=== PATIENT | female | born 1955 | race Caucasian/White ===

== ENCOUNTER 2020-01-05 01:42 | Outpatient (CLI) | payer MEDICARE, SELFPAY ==
[2020-01-05 18:23] LABS: SARS-CoV-2 RNA PCR Negative
== END 2020-01-05 01:43 | disposition home or self-care (01) ==
LOC: ANHCOVIDDT 01:44
PROVIDERS: PCP Internal Medicine; Visit Provider Internal Medicine Gastroenterology
DX: Z01.812 Encounter for preprocedural laboratory examination (principal); Z20.828 Contact with and (suspected) exposure to other viral communicable diseases
CPT/HCPCS: 87635; C9803; U0003

== ENCOUNTER 2020-01-07 00:44 | Day surgery (SDC) | payer MEDICARE, SELFPAY ==
[2019-12-24 14:51] VITALS: BMI 29.8
[2020-01-07 06:22] VITALS: BP 123/75; PULSE 64; RESP 20; TEMP 36.2; O2SAT 98; BMI 29.4
[2020-01-07] MEDS: LACTATED RINGERS 1,000 ML 150 ML IV CONT (06:36)
--- NOTE | 2020-01-07 07:12 | WPDANESEPPF ---
Anes - Initial Pre Proc Eval Procedure: Operation Date: 01/07/20 07:30 Proposed Procedures p Screening Colonoscopy - Raudel Crooks DO Date/Time: 01/07/20 07:12 Surgeon: Raudel Crooks DO Pre Op Diagnosis: neoplasm screening, hx colon polyps Patient Data Age: 64 Gender: F Height: 5 ft 2 in Weight: 72.9 kg Last Vital Signs Temp 97.1 F L 01/07/20 06:22 Pulse 64 01/07/20 06:22 Resp 20 01/07/20 06:22 BP 123/75 01/07/20 06:22 Pulse Ox 98 01/07/20 06:22 Allergies Allergy/AdvReac Type Severity Reaction Status Date / Time diclofenac Allergy Intermediate did not Verified 01/07/20 06:20 like how it made her feel latex Allergy Mild Rash Verified 01/07/20 06:20 Home Medications Medication Instructions Recorded Confirmed Type loratadine 10 mg tablet 10 mg PO DAILY 09/04/19 12/24/19 History lansoprazole 30 mg capsule,delayed 30 mg PO DAILY #90 cap 12/16/19 12/24/19 Rx release meloxicam 15 mg tablet 15 mg PO DAILY #90 tablet 12/16/19 12/24/19 Rx lisinopril 2.5 mg tablet 2.5 mg PO DAILY #90 tablet 12/21/19 12/24/19 Rx so-pda-gamfi-vit [id number] 1 tablet PO DAILY 12/24/19 12/24/19 History [Alive Women's 50 Plus (blend)] Patient hx anesthesia problems: none Family hx anesthesia problems: none PMFSH Past Medical History Medical History (Updated 01/07/20 @ 07:12 by Sanket Kerns MD) Essential (primary) hypertension Pure hypercholesterolemia Social History Social History Smoking status: Never smoker Second hand tobacco smoke exposure: No Alcohol intake: never Substance use: never Anes - Eval Final PreProcedure Day of Procedure 01/07/20 07:12 Patient weight: normal Heart: regular rate and rhythm Lungs: clear to auscultation Airway: Mallampati scale class II Neurological: alert and oriented Last oral intake: >/= 8 hours ASA classification: II Emergent: no Anesthetic plan: proceed Anesthesia type and monitoring: general GIVS and standard monitoring Informed Consent: The patient's anesthetic plan and its attendant risks and benefits were discussed with the patient/family/POA. Questions were solicited and answers provided to the satisfaction of the patient/family/POA.
--- NOTE | 2020-01-07 07:31 | PM.IMHP ---
H&P: HPI History of Present Illness Date/Time: 01/07/20 07:31 Chief complaint: neoplasm screening, hx colon polyps Narrative: Reason for visit is colonoscopy. This very pleasant lady seen in consultation at the request of the primary physician. Impression: Here is a pleasant lady with a history of adenomatous colon polyps. She is here for screening and surveillance colonoscopy. Hypertension. Recommendation: Colonoscopy. History: This very pleasant lady's being evaluated for screening and surveillance colonoscopy. She has history of adenomatous colon polyps. Her GI review systems negative. Physical examination: General: very pleasant patient in no acute distress. HEENT: Head was normocephalic sclerae is clear mouth without masses neck was supple. Heart: Rate rhythm regular without S3 or S4. Lungs: CTA. Abdomen: Soft with no guarding or rigidity. Bowel sounds were active. Neurologic: Cranial nerves 2 through 12 intact. No focal defects. No clonus. Musculoskeletal system: Revealed no joint tenderness or swelling no muscle atrophy. Extremities: Reveal no significant edema. Skin: Warm and dry with normal turgor. Mental status: intact. Patient is alert and oriented. Review of Systems Review of Systems: All systems reviewed & are unremarkable except as noted in HPI and below PMFSH Past Medical History Medical History (Updated 01/07/20 @ 07:29 by Raudel Crooks DO) Adenomatous colon polyp Essential (primary) hypertension HLD (hyperlipidemia) Surgical History Surgical History (Updated 01/07/20 @ 07:30 by Raudel Crooks DO) H/O colonoscopy Social History Social History Smoking status: Never smoker Second hand tobacco smoke exposure: No Alcohol intake: never Substance use: never Meds Home Medications and Allergies Home Medications Medication Instructions Recorded Confirmed Type loratadine 10 mg tablet 10 mg PO DAILY 09/04/19 12/24/19 History lansoprazole 30 mg capsule,delayed 30 mg PO DAILY #90 cap 12/16/19 12/24/19 Rx release meloxicam 15 mg tablet 15 mg PO DAILY #90 tablet 12/16/19 12/24/19 Rx lisinopril 2.5 mg tablet 2.5 mg PO DAILY #90 tablet 12/21/19 12/24/19 Rx rk-lgl-aunjz-vit [id number] 1 tablet PO DAILY 12/24/19 12/24/19 History [Alive Women's 50 Plus (blend)] Allergies Allergy/AdvReac Type Severity Reaction Status Date / Time diclofenac Allergy Intermediate did not Verified 01/07/20 06:20 like how it made her feel latex Allergy Mild Rash Verified 01/07/20 06:20 Vital Signs Vital Signs - 24 hr 01/07/20 06:22 Temperature 36.2 C L Pulse Rate 64 Respiratory Rate 20 Blood Pressure 123/75 Pulse Oximetry 98
[2020-01-07] MEDS: SIMETHICONE ORAL SUSPENSION 20 MG/0.3 ML 30 ML BOTTLE 0.6 ML IRRIGATION (07:44)
[2020-01-07 07:54] VITALS: BP 106/66; PULSE 65; RESP 22; O2SAT 98
[2020-01-07 08:04] VITALS: BP 98/54; PULSE 59; RESP 23; O2SAT 98
[2020-01-07 08:14] VITALS: BP 114/74; PULSE 57; RESP 22; O2SAT 97
== END 2020-01-07 08:25 | disposition home or self-care (01) ==
PROVIDERS: PCP Internal Medicine; Visit Provider Internal Medicine Gastroenterology
PROC: 0DJD8ZZ Inspection of Lower Intestinal Tract, Via Natural or Artificial Opening Endoscopic (ICD-10-PCS; CPT 45378; principal; 2020-01-07 07:30)
DX: Z12.11 Encounter for screening for malignant neoplasm of colon (principal); K64.8 Other hemorrhoids; Z86.010 Personal history of colon polyps; I10 Essential (primary) hypertension; E78.5 Hyperlipidemia, unspecified
CPT/HCPCS: G0105; J2704; J7120

== ENCOUNTER 2020-05-13 10:42 | Emergency (ER) | payer MEDICARE, SELFPAY ==
--- NOTE | ~2020-05-13 | CT_ITS ---
EXAMINATION: CT abdomen pelvis w con DATE: 05/13/2020 12:17 INDICATION: COVID positive. Left flank pain. TECHNIQUE: Computed tomography (CT) of the abdomen and pelvis was performed with 100 mL Omnipaque-350 intravenous contrast. Automated exposure control and iterative reconstruction technique were employe d. The dose-length product was 435.41 mGy-cm. COMPARISON: None FINDINGS: Multiple scattered small groundglass opacities throughout the bilateral lower and right middle lobes. Slightly denser small region of consolidation in the right lower lobe. Appearance would be consisten t with mild or early COVID pneumonia. Heart size is normal. No pericardial or pleural effusion. Small sliding-type hiatal hernia. There are couple hepatic cysts the larger measuring 2.8 cm. Gallbladder, spleen, pancreas and bilateral adrenal glands are normal. 5 x 2 mm stone or change of tiny stones in the distalmost left ureter with mild left hydroureteroneph rosis. There is an additional 3 mm stone at the infundibulum in the upper pole of the left kidney. Th ere is very subtle delay in left renal parenchymal enhancement relative to the right kidney. There ar e few small regions of cortical scarring at the right kidney likely sequela of prior infection or inf arction. Bowels including the appendix are normal. Bladder, uterus and bilateral adnexa are unremarkable. No f ree intraperitoneal gas or fluid. No pathologically enlarged abdominal or pelvic lymphadenopathy. Cys tic changes at the anterosuperior femoral head neck junctions on both the left and right which could be seen in the setting of impingement. Bones are otherwise unremarkable. IMPRESSION: 1. Nephrolithiasis with 5 x 2 mm stone versus chain of tiny stones at the distalmost left ureter with mild left hydroureteronephrosis. 2. Mild patchy opacities in the bilateral lower lungs consistent with mild or early COVID pneumonia. 3. Small sliding-type hiatal hernia. Reviewed, dictated and finalized at location A. 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 Nephrolithiasis with 5 x 2 mm stone versus chain of tiny stones at the dista lmost left ureter with mild left hydroureteronephrosis. 2. Mild patchy opacities in the bilateral lower lungs consistent with mild or e saul COVID pneumonia. 3. Small sliding-type hiatal hernia.
[2020-05-13 10:58] VITALS: BP 106/90; PULSE 72; RESP 16; TEMP 36.4; O2SAT 98
[2020-05-13 11:22] LABS: Basophils Percent Auto 0.2 % (0.2-1.2); Eosinophils Absolute Auto 0.1 K/mm3 (0-0.3); Eosinophils Percent Auto 0.8 % (0-4.4); Hematocrit 41.7 % (37.0-47.0); Hemoglobin 14.1 g/dL (12.0-15.0); Immature Granulocyte Absolute 0.23 K/mm3 (0.00-0.031); Immature Granulocyte Percent A 2.7 % (0-0.5); Lymphocytes Absolute Auto 1.01 K/mm3 (0.9-3.2); Mean Corpuscular HGB Conc 33.8 g/dl (32-36); Mean Corpuscular Hemoglobin 31.7 pg (26-34); Mean Corpuscular Volume 93.7 fl (80-100); Mean Platelet Volume 10.6 fl (7.4-10.4); Monocytes Absolute Auto 0.6 K/mm3 (0.1-0.6); Monocytes Percent Auto 6.5 % (2.6-8.5); Neutrophils Absolute Auto 6.5 K/mm3 (1.3-6.7); Neutrophils Percent Auto 77.8 % (45.5-73.1); Platelet Count Result 208 k/mm3 (150-375); Red Blood Count 4.45 M/mm3 (4.2-5.4); Red Cell Distribution Width 11.9 % (11.5-14.5); White Blood Count 8.4 K/mm3 (4.5-10.0)
--- NOTE | 2020-05-13 11:34 | ED.ABDPAIN ---
HPI - Abdominal Pain General Chief Complaint: Abdominal Pain Stated Complaint: left flank pain Time Seen by Provider: 05/13/20 11:34 Source: patient Mode of arrival: ambulatory Limitations: no limitations History of Present Illness HPI narrative: Patient is a 64-year-old female, recently diagnosed with Covid on May 03, who presents for evaluation of left flank pain. Patient states she had been feeling well despite the Covid diagnosis and then began to have subjective fever, chills, nausea and left flank pain beginning yesterday. Pain is at times sharp in nature with radiation to the left lower abdomen. She has had associated nausea without vomiting. She reports some suprapubic pressure and slight dysuria and frequency. No noticeable hematuria. No known history of kidney stones. Patient denies cough or shortness of breath. Related Data Home Medications Medication Instructions Recorded Confirmed loratadine 10 mg tablet 10 mg PO DAILY 09/04/19 03/15/20 gc-lmg-hbgma-vit [id number] 1 tablet PO DAILY 12/24/19 03/15/20 [Alive Women's 50 Plus (blend)] mecobalamin (vitamin B12) 5,000 mcg PO 03/15/20 03/15/20 mcg disintegrating tablet omega-3 fatty acids 1,000 mg 1,000 mg PO DAILY 03/15/20 03/15/20 capsule Allergies Allergy/AdvReac Type Severity Reaction Status Date / Time diclofenac Allergy Intermediate did not Verified 03/15/20 10:38 like how it made her feel latex Allergy Mild Rash Verified 03/15/20 10:38 Review of Systems Review of Systems: Narrative: CONSTITUTIONAL: Reports subjective fever and chills EYES: Denies visual changes, redness, or discharge. ENT: Denies rhinorrhea, congestion, sore throat, or otalgia. CARDIOVASCULAR: Denies chest pain, palpitations, or edema. RESPIRATORY: Denies cough or dyspnea. GASTROINTESTINAL: Reports left-sided abdominal pain, nausea and vomiting GENITOURINARY: Reports dysuria, denies hematuria SKIN: Denies rash or itching. MUSCULOSKELETAL: Denies back pain, joint pain, or myalgia. NEUROLOGIC: Denies headache, numbness, or weakness. [facility] Past Medical History Medical History Adenomatous colon polyp Essential (primary) hypertension HLD (hyperlipidemia) Surgical History Surgical History H/O colonoscopy Family History Family History Mother Patient's mother is in good health Father Patient's father is Acute myocardial infarction Social History Social History Smoking status: Never smoker Second hand tobacco smoke exposure: No Alcohol intake: never Substance use: never Gender identity (if verbalized by the patient): Female Exam Narrative: Exam Narrative: GENERAL: Awake, alert, conversant HEAD: Normocephalic, atraumatic. EYES: PERRLA and EOMI. ENT: Nares clear, no rhinorrhea or epistaxis. Mucous membranes moist. NECK: Supple. CHEST: No respiratory distress, breathing even and non labored HEART: Regular rate, sinus rhythm ABDOMEN:Non distended, non tender, no reproducible flank tenderness, no reproducible left lower quadrant tenderness, mild left suprapubic tenderness EXTREMITIES: Normal range of motion. No edema. SKIN: Warm, dry, no rash. NEURO:No focal deficits. Alert and oriented x3 Course Vital Signs Vital signs: Vital Signs Temperature 36.4 C 05/13/20 10:58 Pulse Rate 72 05/13/20 10:58 Respiratory Rate 16 05/13/20 10:58 Blood Pressure 106/90 05/13/20 10:58 Pulse Oximetry 98 05/13/20 10:58 Temperature 36.4 C 05/13/20 10:58 Pulse Rate 77 05/13/20 13:57 Respiratory Rate 15 05/13/20 13:57 Blood Pressure 131/74 05/13/20 13:57 Pulse Oximetry 95 05/13/20 13:57 MDM - Abdominal Pain MDM Narrative Medical decision making narrative: Patient present
[2020-05-13 11:35] LABS: Alanine Aminotransferase 34 U/L (4-35); Albumin Level 3.9 g/dL (3.5-5.1); Alkaline Phosphatase 33 U/L (38-126); Anion Gap 7 mmol/L (8-16); Aspartate Amino Transferase 34 U/L (14-36); Bilirubin,Total 0.6 mg/dL (0.2-1.3); Blood Urea Nitrogen 30 mg/dL (7-17); Calcium 9.2 mg/dL (8.4-10.2); Carbon Dioxide 25 mmol/L (22-30); Chloride 107 mmol/L (98-107); Estimated CRCL calculation 38 ml/min; Estimated Glomerular Filt Rate 45; Glucose 126 mg/dL (65-105); Lipase 94 U/L (23-300); Potassium 4.1 mmol/L (3.4-5.0); Sodium 139 mmol/L (137-145)
[2020-05-13] MEDS: SODIUM CHLORIDE 0.9% IV 1,000 ML 999 ML IV CONT (11:53)
[2020-05-13] MEDS: MORPHINE SULFATE (*CRX) 4 MG/ML INJ IV PUSH (11:53)
[2020-05-13] MEDS: ONDANSETRON INJ 4 MG/2 ML VIAL IV PUSH (11:53)
[2020-05-13 12:17] LABS: Add Urine Microscopic? YES; Appearance Urine Cloudy (Clear); Bacteria Urine Trace /hpf; Bilirubin Urine Negative (Negative); Blood Urine 3+ (Negative); Color Urine Yellow (Yellow); Glucose Urine UA Negative (Negative); Ketones Urine Negative (Negative); Leukocyte Esterase Ur 1+ LEU/UL (Negative); Mucus Urine Rare /lpf; Nitrate Urine Negative (Negative); Protein Urine Negative (Negative); RBC Urine >75 /hpf (0-2); Specific Grav Ur 1.018 (1.001-1.035); Squamous Epithelial Cell Urine Rare /hpf (Few); Uric Acid Crystals Urine Present /hpf; Urobilinogen Urine Negative mg/dL (<2.0)
[2020-05-13 13:01] VITALS: BP 126/71; PULSE 80; RESP 18; O2SAT 97
[2020-05-13 13:57] VITALS: BP 131/74; PULSE 77; RESP 15; O2SAT 95
[2020-05-13 15:15] VITALS: BP 111/72; PULSE 80; RESP 15; O2SAT 97
== END 2020-05-13 15:16 | disposition home or self-care (01) ==
LOC: ANHED 13:12 → ANHSURGERY 14:04 → ANHED 14:23
PROVIDERS: Emergency Provider Emergency Medicine; PCP Internal Medicine
DX: U07.1 COVID-19 (principal); N13.2 Hydronephrosis with renal and ureteral calculous obstruction; Z86.010 Personal history of colon polyps; E78.5 Hyperlipidemia, unspecified; I10 Essential (primary) hypertension; R91.8 Other nonspecific abnormal finding of lung field
CPT/HCPCS: 36415; 74177; 80053; 81001; 83690; 85025; 96361; 96365; 96375; 99284; J0696; J2270; J2405; J7030; Q9967

== ENCOUNTER 2020-06-14 10:46 | Outpatient (CLI) | payer MEDICARE, SELFPAY ==
--- NOTE | ~2020-06-14 | XR_ITS ---
XR abdomen/kub 1V 06/14/2020 11:18 INDICATION: Follow-up ureteral stone TECHNIQUE: KUB COMPARISON: CT dated 05/13/2020 FINDINGS: Bowel gas pattern is normal. There is no evidence of free air, mass, organomegaly, ascites or obstruction. Moderate colonic fecal loading. No abnormal calculi are seen. The bones appear inta ct. IMPRESSION: 1: No acute abdominal abnormality identified. Reviewed, dictated and finalized at location A. 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
== END 2020-06-14 10:47 | disposition home or self-care (01) ==
LOC: ANHIMG 10:47
PROVIDERS: PCP Internal Medicine; Visit Provider Urology
DX: N20.1 Calculus of ureter (principal)
CPT/HCPCS: 74018

== ENCOUNTER → 2020-08-03 13:23 | Outpatient (CLI) | payer MEDICARE, SELFPAY ==
--- NOTE | ~2020-08-03 | MM_ITS ---
EXAMINATION: MM screening [facility] BI w alexander HISTORY: Screening TECHNIQUE: Craniocaudal and mediolateral oblique 3-D tomosynthesis images were obtained and synthetic 2-D images were generated. CAD analysis was submitted and interpreted. COMPARISON: Comparison to multiple prior studies sequentially, with oldest reviewed study dated 12/03. BREAST PARENCHYMAL COMPOSITION: There are scattered areas of fibroglandular density. FINDINGS: There is no evidence of suspicious mass, calcification, or architectural distortion to sugg est malignancy in either breast. There has been no suspicious interval change. IMPRESSION: 1. No mammographic evidence of malignancy. 2. Recommend routine screening mammography in one year. BI-RADS Category 1: Negative Reviewed, dictated and finalized at location A.
== END ==
PROVIDERS: Visit Provider Student in an Organized Health Care Education/Training Program
DX: Z12.31 Encounter for screening mammogram for malignant neoplasm of breast (principal)
CPT/HCPCS: 77063; 77067

== ENCOUNTER 2021-06-08 10:20 | Outpatient (CLI) | payer MEDICARE, SELFPAY ==
--- NOTE | ~2021-06-08 | XR_ITS ---
XR abdomen/kub 1V 06/08/2021 10:36 INDICATION: Left flank pain TECHNIQUE: KUB COMPARISON: 06/14/2020 FINDINGS: Bowel gas pattern is normal. There is no evidence of free air, mass, organomegaly, ascites or obstruction. No abnormal calculi are seen. The bones appear intact. Moderate colonic fecal load ing. IMPRESSION: 1: No acute abdominal abnormality identified. Reviewed, dictated and finalized at location B. 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
== END 2021-06-08 10:21 | disposition home or self-care (01) ==
LOC: ANHIMG 10:25
PROVIDERS: PCP Internal Medicine; Visit Provider Urology
DX: N20.0 Calculus of kidney (principal)
CPT/HCPCS: 74018

== ENCOUNTER → 2022-01-09 12:41 | Outpatient (CLI) | payer MEDICARE, SELFPAY ==
--- NOTE | ~2022-01-09 | US_ITS ---
EXAMINATION: US renal BI DATE: 01/09/2022 13:11 INDICATION: CKD TECHNIQUE: Multiple grayscale and Doppler ultrasound images of the kidneys were obtained. COMPARISON: X-ray abdomen 06/08/2021. CT abdomen and pelvis 05/13/2020 FINDINGS: The right kidney measures 9.4 x 4.5 x 5.1 cm. The left kidney measures 8.7 x 4.7 x 4.9 cm. The kidney s demonstrate normal parenchymal echogenicity. Bilateral cortical thinning and scarring. There is no hydronephrosis. The bladder is normal. IMPRESSION: No sonographic evidence of nephrolithiasis. Bilateral cortical thinning and scarring. Reviewed, dictated and finalized at location K. IMPRESSION: No sonographic evidence of nephrolithiasis. Bilateral cortical thinning and sca rring.
== END ==
PROVIDERS: PCP Internal Medicine Nephrology; Visit Provider Internal Medicine Nephrology
DX: N20.0 Calculus of kidney (principal); N18.31 Chronic kidney disease, stage 3a
CPT/HCPCS: 76775

== ENCOUNTER → 2022-01-19 12:23 | Outpatient (CLI) | payer MEDICARE, SELFPAY ==
--- NOTE | ~2022-01-19 | MM_ITS ---
EXAMINATION: MM screening [facility]uong BI w alexander HISTORY: Screening mammogram TECHNIQUE: Craniocaudal and mediolateral oblique 3-D tomosynthesis images were obtained and synthetic 2-D images were generated. CAD analysis was submitted and interpreted. COMPARISON: 07/30/2020, 08/12/2018, 04/22/2017 bilateral screening mammogram examinations BREAST PARENCHYMAL COMPOSITION: There are scattered areas of fibroglandular density. FINDINGS: There is no evidence of suspicious mass, calcification, or architectural distortion to sugg est malignancy in either breast. There has been no suspicious interval change. IMPRESSION: 1. No mammographic evidence of malignancy. 2. Recommend routine screening mammography in one year. BI-RADS Category 1: Negative Reviewed, dictated and finalized at location A.
== END ==
PROVIDERS: PCP Family Medicine; Visit Provider Student in an Organized Health Care Education/Training Program
DX: Z12.31 Encounter for screening mammogram for malignant neoplasm of breast (principal)
CPT/HCPCS: 77063; 77067

== ENCOUNTER → 2023-01-24 09:18 | Outpatient (CLI) | payer MEDICARE, SELFPAY ==
--- NOTE | ~2023-01-24 | XR_ITS ---
Right Shoulder Technique: AP and axillary views were obtained. Clinical History: Pain Findings: No fracture or dislocation is seen. Osseous alignment is anatomic. The glenohumeral and acr omioclavicular joint spaces are preserved. Soft tissues are unremarkable. Impression: Unremarkable right shoulder radiographs. Reviewed, dictated and finalized at [facility]. Impression: Unremarkable right shoulder radiographs.
== END ==
PROVIDERS: Visit Provider Nurse Practitioner
DX: M25.511 Pain in right shoulder (principal)
CPT/HCPCS: 73030

== ENCOUNTER 2023-05-10 08:42 | Outpatient (CLI) | payer MEDICARE, SELFPAY ==
--- NOTE | ~2023-05-10 | XR_ITS ---
EXAMINATION: XR abdomen/kub 1V INDICATION: Calculus of the kidney TECHNIQUE: Supine views of the abdomen were obtained on 2 radiographs. COMPARISON: 06/08/2021 FINDINGS: No definite urolithiasis is identified. The bowel gas pattern is normal. There is mild oste oarthritis of the hips. Mild to moderate lower lumbar spondylosis is noted. IMPRESSION: 1. No urolithiasis identified. Reviewed, dictated and finalized at location B. 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
== END 2023-05-10 08:43 | disposition home or self-care (01) ==
PROVIDERS: Visit Provider Internal Medicine Nephrology
DX: N20.0 Calculus of kidney (principal); I12.9 Hypertensive chronic kidney disease with stage 1 through stage 4 chronic kidney disease, or unspecified chronic kidney disease; N18.31 Chronic kidney disease, stage 3a
CPT/HCPCS: 74018

== ENCOUNTER → 2023-05-15 14:16 | Outpatient (CLI) | payer MEDICARE, SELFPAY ==
--- NOTE | ~2023-05-15 | MM_ITS ---
EXAMINATION: MM screening [facility] BI w alexander HISTORY: Screening mammogram TECHNIQUE: Craniocaudal and mediolateral oblique 3-D tomosynthesis images were obtained and synthetic 2-D images were generated. CAD analysis was submitted and interpreted. COMPARISON: 01/19/2022, 08/03/2020, 08/12/2018 BREAST PARENCHYMAL COMPOSITION: There are scattered areas of fibroglandular density. FINDINGS: No suspicious mass, calcification, or architectural distortion are identified in either suzanne ast to suggest malignancy. There has been no suspicious interval change. IMPRESSION: 1. No mammographic evidence of malignancy. 2. Recommend routine screening mammography in one year. BI-RADS Category 1: Negative Reviewed, dictated and finalized at location A. 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
== END ==
PROVIDERS: PCP Student in an Organized Health Care Education/Training Program; Visit Provider Student in an Organized Health Care Education/Training Program
DX: Z12.31 Encounter for screening mammogram for malignant neoplasm of breast (principal)
CPT/HCPCS: 77063; 77067

== ENCOUNTER 2023-07-09 17:11 | Emergency (ER) | payer MEDICARE, SELFPAY ==
--- NOTE | ~2023-07-09 | CT_ITS ---
EXAMINATION: CT abdomen pelvis wo con DATE: 07/09/2023 19:29 INDICATION: R flank tenderness TECHNIQUE: Computed tomography (CT) of the abdomen and pelvis was performed without intravenous contr ast. Automated exposure control and iterative reconstruction technique were employed. The dose-length product was 565.11 mGy-cm. COMPARISON: 05/13/2020. FINDINGS: Lower thorax: Bibasilar scar/atelectasis. Coronary artery calcification. Liver: Simple left lobe cyst. Biliary/Gallbladder: Gallbladder is normal. No bile duct dilation. Pancreas: No mass or duct dilation. Spleen: Normal. Adrenals:No mass. Kidneys: No suspicious mass, obstructing stone, or hydronephrosis. Mild bilateral renal atrophy and c ortical scarring. Punctate, nonobstructing left upper and midpole calcifications. GI tract: Small hiatal hernia. No small or large bowel dilation. Normal appendix. Mesentery/Peritoneum: No ascites, mass, or free air. Retroperitoneum: No mass. Pelvis: Pelvic organs are within normal limits. Soft Tissues: Small fat-containing uncomplicated umbilical and bilateral inguinal hernias. Bones: No acute osseous finding. IMPRESSION: No acute abdominopelvic process detected. Reviewed, dictated and finalized at location K. 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
[2023-07-09 17:18] VITALS: BP 113/87; PULSE 91; RESP 19; TEMP 36.3; O2SAT 97
[2023-07-09 18:53] LABS: Basophils Absolute Auto 0.1 K/mm3 (0.0-0.1); Basophils Percent Auto 0.4 % (0.2-1.2); Eosinophils Absolute Auto 0.1 K/mm3 (0-0.3); Eosinophils Percent Auto 0.9 % (0-4.4); Hematocrit 44.3 % (37.0-47.0); Immature Granulocyte Absolute 0.12 K/mm3 (0.00-0.031); Immature Granulocyte Percent A 1.1 % (0-0.5); Lymphocytes Absolute Auto 1.62 K/mm3 (0.9-3.2); Lymphocytes Percent Auto 14.6 % (18.3-44.2); Mean Corpuscular HGB Conc 31.6 g/dl (32-36); Mean Corpuscular Hemoglobin 30.8 pg (26-34); Mean Corpuscular Volume 97.4 fl (80-100); Mean Platelet Volume 10.9 fl (7.4-10.4); Monocytes Absolute Auto 1.1 K/mm3 (0.1-0.6); Monocytes Percent Auto 9.7 % (2.6-8.5); Neutrophils Absolute Auto 8.2 K/mm3 (1.3-6.7); Neutrophils Percent Auto 73.3 % (45.5-73.1); Platelet Count Result 219 k/mm3 (150-375); Red Blood Count 4.55 M/mm3 (4.2-5.4); Red Cell Distribution Width 12.6 % (11.5-14.5); White Blood Count 11.1 K/mm3 (4.5-10.0)
[2023-07-09 19:03] LABS: Alanine Aminotransferase 24 U/L (6-35); Albumin Level 4.3 g/dL (3.5-5.1); Alkaline Phosphatase 37 U/L (38-126); Anion Gap 5 mmol/L (8-16); Aspartate Amino Transferase 27 U/L (14-36); Bilirubin,Total 0.8 mg/dL (0.2-1.3); Blood Urea Nitrogen 38 mg/dL (7-17); Calcium 9.8 mg/dL (8.4-10.2); Carbon Dioxide 28 mmol/L (22-30); Chloride 105 mmol/L (98-107); Estimated CRCL calculation 35 ml/min; Estimated Glomerular Filt Rate 41; Glucose 124 mg/dL (65-110); Potassium 4.3 mmol/L (3.4-5.0); Sodium 138 mmol/L (137-145)
[2023-07-09 19:06] LABS: Appearance Urine Clear (Clear); Bacteria Urine None Seen /hpf; Bilirubin Urine Negative (Negative); Blood Urine Negative (Negative); Color Urine Yellow (Yellow); Glucose Urine UA Negative (Negative); Ketones Urine Negative (Negative); Leukocyte Esterase Ur 2+ LEU/UL (Negative); Nitrate Urine Negative (Negative); Non Pathogenic Casts 0-2; Protein Urine Negative (Negative); RBC Urine 0-2 /hpf (0-2); Specific Grav Ur 1.022 (1.001-1.035); Squamous Epithelial Cell Urine None seen /hpf (Few); Urobilinogen Urine 0.2 mg/dL (<2.0)
--- NOTE | 2023-07-09 19:11 | ED.FEMALEGU ---
HPI - Female Genitourinary General Chief complaint: Urogenital-Female Stated complaint: right flank pain Time Seen by Provider: 07/09/23 18:24 Source: patient Mode of arrival: ambulatory Limitations: no limitations History of Present Illness HPI Narrative: This is a 67-year-old female with PMH of nephrolithiasis, CKD, HTN who presents to the ED for chief complaint of right flank pain that started 3 days ago and seems to be getting progressively worse. Reports the pain has waxed and waned but is now severe in the right flank. Reports it feels similar to a left-sided kidney stone that she had a couple of years ago. Reports some malodorous urine but no dysuria or hematuria. Endorses low-grade fevers at home. Also endorses nausea. Denies chest pain, shortness of breath, abdominal pain. Related Data Home Medications Medication Instructions Recorded Confirmed loratadine 10 mg tablet (Claritin) 10 mg PO DAILY 09/04/19 05/29/23 cyanocobalamin (vitamin B-12) 5,000 mcg PO DAILY 04/26/22 05/29/23 5,000 mcg capsule multivitamin (One-A-Day Essential 1 tablet PO DAILY 04/26/22 05/29/23 tablet) magnesium glycinate mg PO 05/28/23 05/29/23 Allergies Allergy/AdvReac Type Severity Reaction Status Date / Time diclofenac Allergy Intermediate did not Verified 07/09/23 18:33 like how it made her feel latex Allergy Mild Rash Verified 07/09/23 18:33 Review of Systems Review of Systems: All systems as dictated in HPI [facility] Past Medical History Medical History Adenomatous colon polyp Essential (primary) hypertension HLD (hyperlipidemia) Screening for breast cancer Surgical History Surgical History H/O colonoscopy H/O: knee surgery Family History Family History Mother Patient's mother is in good health Father Patient's father is Acute myocardial infarction Social History Social History (Updated 05/29/23 @ 13:22 by Yovanny Lott MD) Smoking status: Never smoker Second hand tobacco smoke exposure: No Alcohol intake: never Substance use: never Do You Feel Safe in your Home?: Yes Lack of Transportation: No Lack of Food: Never True Current Housing: I Have Housing Concerned About Future Housing: No Difficulty Paying Gas/Electric Bills: No Difficulty Paying for Meds: No Currently Unemployed: No Education: High School Diploma/GED Difficulty w/ Childcare or Family Care: No Living arrangements: with family Gender identity (if verbalized by the patient): Female Sexual Orientation (if Verbalized by the Patient): Straight or Heterosexual Exam Narrative: GENERAL: Well-appearing, well-nourished, and in no acute distress. HEAD: Normocephalic, atraumatic. EYES: PERRLA and EOMI. ENT: Nares clear, no rhinorrhea or epistaxis. Mucous membranes moist. Oropharynx without tonsillar hypertrophy exudate or other lesions. NECK: Supple. No adenopathy or masses. CHEST: No respiratory distress. Clear to auscultation. No wheezes rales or rhonchi HEART: Regular rate and rhythm. No murmur heard. Normal peripheral pulses. ABDOMEN: Mild right flank tenderness. Negative flank tenderness. soft, otherwise nontender, nondistended, normal active bowel sounds. MSK: Normal range of motion. No edema. SKIN: Warm, dry, no rash. NEURO: Alert and oriented x3. No focal deficits. PSYCH: Normal mood and affect. Course Vital Signs Vital signs: Vital Signs Temperature 97.4 F L 07/09/23 17:18 Pulse Rate 91 07/09/23 17:18 Respiratory Rate 19 07/09/23 17:18 Blood Pressure 113/87 07/09/23 17:18 Pulse Oximetry 97 07/09/23 17:18 Oxygen Delivery Room Air 07/09/23 17:18 Temperature 97.4 F L 07/09/23 17:18 Pulse Rate 88 07/09/23 20:35 Respiratory Rate 16 07/09/23 20:35 Blo
[2023-07-09 19:19] LABS: Add Urine Microscopic? YES
[2023-07-09] MEDS: ONDANSETRON INJ 4 MG/2 ML VIAL IV PUSH (19:29)
[2023-07-09] MEDS: HYDROmorphone HCL INJ (*CRX) 1 MG/ML SYR 0.5 MG IV PUSH (19:29)
[2023-07-09 19:30] LABS: CRP 6.2 mg/dL (<1.0)
[2023-07-09 19:31] VITALS: BP 125/70; PULSE 82; RESP 16; O2SAT 94
[2023-07-09 20:35] VITALS: BP 121/74; PULSE 88; RESP 16; O2SAT 94
== END 2023-07-09 20:35 | disposition home or self-care (01) ==
PROVIDERS: Emergency Provider Physician Assistant; PCP Family Medicine
DX: N39.0 Urinary tract infection, site not specified (principal); I12.9 Hypertensive chronic kidney disease with stage 1 through stage 4 chronic kidney disease, or unspecified chronic kidney disease; N18.9 Chronic kidney disease, unspecified; E78.5 Hyperlipidemia, unspecified
CPT/HCPCS: 36415; 74176; 80053; 81001; 85025; 86140; 87086; 96365; 96375; 99284; J0696; J1170; J2405

== ENCOUNTER 2023-07-10 13:14 | Emergency (ER) | payer MEDICARE, SELFPAY ==
[2023-07-10 13:17] VITALS: BP 125/74; PULSE 87; RESP 20; TEMP 36.4; O2SAT 97
[2023-07-10] MEDS: diazePAM (*CRX) 5 MG TABLET PO (14:13)
--- NOTE | 2023-07-10 14:30 | ED.GENADULT ---
HPI - General Adult General Chief complaint: Urogenital-Female Stated complaint: bladder infection Time Seen by Provider: 07/10/23 13:28 History of Present Illness HPI narrative: patient is a 59-year-old female who presents ER with back pain. Reports he has been having spasms intermittently since last night. Occasionally worse with movement. No known trauma or injury. Recently diagnosed with urinary infection. She only today picked upper antibiotics / [place]/Zofran. She does not think the [place] as help. No real suprapubic pain or Sam[place] frequency at this time. Patient had a CT scan that ruled out kidney stones yesterday. Related Data Home Medications Medication Instructions Recorded Confirmed loratadine 10 mg tablet (Claritin) 10 mg PO DAILY 09/04/19 05/29/23 cyanocobalamin (vitamin B-12) 5,000 mcg PO DAILY 04/26/22 05/29/23 5,000 mcg capsule multivitamin (One-A-Day Essential 1 tablet PO DAILY 04/26/22 05/29/23 tablet) magnesium glycinate mg PO 05/28/23 05/29/23 Allergies Allergy/AdvReac Type Severity Reaction Status Date / Time diclofenac Allergy Intermediate did not Verified 07/09/23 18:33 like how it made her feel latex Allergy Mild Rash Verified 07/09/23 18:33 Review of Systems Review of Systems: All systems reviewed & are unremarkable except as noted in HPI and below Constitutional: Constitutional: Denies chills and Denies fever(s) Cardiovascular: Cardiovascular: Reports no additional cardiovascular complaints Respiratory: Respiratory: Reports no additional respiratory complaints Gastrointestinal: Gastrointestinal: Reports no additional gastrointestinal complaints Genitourinary: Genitourinary: Denies nocturia, Denies dysuria and Reports flank pain Musculoskeletal: Musculoskeletal: Reports back pain, Denies arthralgias and Denies joint swelling [facility] Past Medical History Medical History Adenomatous colon polyp Essential (primary) hypertension HLD (hyperlipidemia) Screening for breast cancer Surgical History Surgical History H/O colonoscopy H/O: knee surgery Family History Family History Mother Patient's mother is in good health Father Patient's father is Acute myocardial infarction Social History Social History (Updated 05/29/23 @ 13:22 by Yovanny Lott MD) Smoking status: Never smoker Second hand tobacco smoke exposure: No Alcohol intake: never Substance use: never Do You Feel Safe in your Home?: Yes Lack of Transportation: No Lack of Food: Never True Current Housing: I Have Housing Concerned About Future Housing: No Difficulty Paying Gas/Electric Bills: No Difficulty Paying for Meds: No Currently Unemployed: No Education: High School Diploma/GED Difficulty w/ Childcare or Family Care: No Living arrangements: with family Gender identity (if verbalized by the patient): Female Sexual Orientation (if Verbalized by the Patient): Straight or Heterosexual Exam Narrative: GENERAL: Well-appearing, well-nourished, and in no acute distress. HEAD: Normocephalic, atraumatic. ENT: Mucous membranes moist. CHEST: Clear to auscultation. No respiratory distress. HEART: Regular rate and rhythm. Normal peripheral pulses. BACK: NO CVA tenderness, no midline/paraspinal tenderness. EXTREMITIES: Normal range of motion. No edema. SKIN: Warm, dry, no rash. NEURO: Alert and oriented x3. PSYCH: Normal mood and affect. Course Course Emergency Course: I have reviewed the note/labs/ imaging from yesterday. Patient has been given Valium 5 mg here in the ER. She has moved from comfortable. Discharge with oral muscle relaxer. Symptoms may be spasm. Infection does not seem bad enough to be pyelonephritis. Vital Signs Vital signs: Vital Signs
== END 2023-07-10 14:57 | disposition home or self-care (01) ==
PROVIDERS: Emergency Provider Emergency Medicine; PCP Family Medicine
DX: M62.830 Muscle spasm of back (principal); I10 Essential (primary) hypertension; E78.5 Hyperlipidemia, unspecified; Z86.010 Personal history of colon polyps
CPT/HCPCS: 99283; A9270

== ENCOUNTER → 2023-07-16 10:07 | Outpatient (CLI) | payer MEDICARE, SELFPAY ==
--- NOTE | ~2023-07-16 | XR_ITS ---
EXAMINATION: XR chest 2V DATE: 07/16/2023 10:20 INDICATION: Hemoptysis. TECHNIQUE: Frontal and lateral views of the chest were obtained. COMPARISON: Chest 2 views 07/22/2018, CT abdomen and pelvis 07/09/2023 FINDINGS: There is mild atelectasis in the lower lung zones. There is a small right pleural effusion. No pneumothorax. The heart size is normal. IMPRESSION: 1. Mild atelectasis in the lower lung zones. 2. Small right pleural effusion. Reviewed, dictated and finalized at location E. 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
== END ==
PROVIDERS: PCP Family Medicine; Visit Provider Nurse Practitioner
DX: R04.2 Hemoptysis (principal); J90 Pleural effusion, not elsewhere classified; R91.8 Other nonspecific abnormal finding of lung field
CPT/HCPCS: 71046

== ENCOUNTER 2023-08-14 08:53 | Outpatient (CLI) | payer MEDICARE, SELFPAY ==
--- NOTE | ~2023-08-14 | XR_ITS ---
XR chest 2V DATE: 08/14/2023 09:11 INDICATION: Hemoptysis. Recent chest radiograph revealing mild atelectasis in the lower lung zones an d small right pleural effusion TECHNIQUE: PA and lateral views COMPARISON: 07/16/2023 PA and lateral chest FINDINGS: Normal heart size. No hilar or mediastinal enlargement. There is minimal discoid atelectasis or scarring at the right lung base. Otherwise the bibasilar atel ectasis reported on 07/16/2023 has largely resolved. No pulmonary infiltrate or consolidation, pleural effusion or pulmonary vascular congestion or pneumothorax. IMPRESSION: Minimal discoid atelectasis or scarring at the right lung base Reviewed, dictated and finalized at location B.
== END 2023-08-14 08:54 ==
PROVIDERS: PCP Family Medicine; Visit Provider Family Medicine
DX: R91.8 Other nonspecific abnormal finding of lung field (principal)
CPT/HCPCS: 71046

== ENCOUNTER 2024-05-21 11:48 | Outpatient (CLI) | payer MEDICARE, SELFPAY ==
--- NOTE | ~2024-05-21 | MM_ITS ---
EXAMINATION: MM screening phuong BI w alexander HISTORY: Screening TECHNIQUE: Craniocaudal and mediolateral oblique 3-D tomosynthesis images were obtained and synthetic 2-D images were generated. CAD analysis was submitted and interpreted. COMPARISON: Comparison to multiple prior studies sequentially, with oldest reviewed study dated 02/10. BREAST PARENCHYMAL COMPOSITION: Not dense: There are scattered areas of fibroglandular density. FINDINGS: There is no evidence of suspicious mass, calcification, or architectural distortion to sugg est malignancy in either breast. There has been no suspicious interval change. IMPRESSION: 1. No mammographic evidence of malignancy. 2. Recommend routine screening mammography in one year. BI-RADS Category 1: Negative Reviewed, dictated and finalized at location B. 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
== END 2024-05-21 11:49 | disposition home or self-care (01) ==
LOC: MICIMG 11:48
PROVIDERS: PCP Family Medicine; Visit Provider Nurse Practitioner
DX: Z12.31 Encounter for screening mammogram for malignant neoplasm of breast (principal)
CPT/HCPCS: 77063; 77067

== ENCOUNTER 2024-10-05 16:59 | Emergency (ER) | payer MEDICARE, SELFPAY ==
--- OUTSIDE RECORDS SUMMARY | 2024-10-05 17:02 | XMS_ITS | Clinical Summary ---
Author Organization [facility] Address [address] [place] [id number] Phone Care Team Providers Care Otter Trawler Boatswain Name Role Phone Basia Randolph MD Primary Care Provider [phone] Allergies Active Allergy Reactions Criticality Noted Date Comments Latex Itching 12/21/2019 Medications lansoprazole (PREVACID) [address] capsule Take 30 mg by mouth daily Active lisinopril (PRINIVIL) 10 MG tablet Take 10 mg by mouth daily Active simvastatin (ZOCOR) 5 MG tablet Take 5 mg by mouth 1 (one) time each day 12/16/2021 Active Active Problems No known active problems Immunizations Immunization Administration Dates Next Due Influenza, Injectable, Mdck, Preservative Free, Quadrivalt 04/21/2017 Influenza, Injectable, Quadrivalent 01/31/2016 Influenza, Injectable, Quadrivalent, Preservativ e Free 02/27/2018 Zoster 01/30/2016 Family History Medical History Relation Comments Kidney disease Neg Hx Kidney stone Neg Hx Social History Tobacco Use Types Packs/Day Years Used Date Smoking Tobacco: Never Smokeless Tobacco: Never Alcohol Use Standard Drinks/Week Comments Not Currently 0 (1 standard drink = 0.6 oz pur e alcohol) Comments Unknown Sex and Gender Information Value Date Recorded Sex Assigned at Female 01/09/2022 6:37 AM MDT Legal Sex Female 9:14 AM MDT Gender Identity Female 01/09/2022 6:37 AM MDT Sexual Orientation Straight 01/09/2022 6: 37 AM MDT Last Filed Vital Signs Vital Sign Reading Time Taken Comments Blood Pressure 118/70 01/03/2022 9:21 AM CDT Pulse 70 01/03/2022 9:21 AM CDT Temperature 36.3 C (97.4 F) 01/03/2022 9:21 AM CDT Respiratory Rate - - Oxygen Saturation - - Inhaled Oxygen Concentration - - Weight 73.9 kg (163 lb) 01/03/2022 9:21 AM CDT Height 157.5 cm (5' 2) 01/03/2022 9:21 AM CDT Body Mass Index 29.81 01/03/2022 9:21 AM CDT Plan of Treatment Health Maintenance Due Date Last Done Comments Pneumococcal PPSV23/PCV13 65 + Years / Low and Medium Risk (1 of 4 - PCV) 2004 Influenza Vaccine (Season Ended) 2025 02/28/20 18, 04/21/2017 Insurance [employer] MEDICARE Care Teams Otter Trawler Boatswain Relationship Specialty Start Date End Date Basia Randolph MD [address] [place] [address] PCP - General Family Medicine 11/22/21
--- OUTSIDE RECORDS SUMMARY | 2024-10-05 17:02 | XMS_ITS | Clinical Summary ---
Author Organization [facility] Address [address] [facility] [address] [place] [address] Phone Care Team Providers Care Skin Toggler Name Role Phone Orlando Jolly Primary Care Provider Allergies Active Allergy Reactions Criticality Noted Date Comments Latex Itching 12/21/2019 Medications lisinopril (PRINIVIL, ZESTRIL) 10 MG Tablet Take 10 mg by mouth daily. Active meloxicam (MOBIC) 15 MG Tablet Take 15 mg by mouth daily. Active lansoprazole (PREVACID) 30 MG CAPSULE DELAYED RELEASE Take 30 mg by mouth daily. Active Loratadine (CLARITIN PO) Take by mouth. Active KRILL OIL PO Take by mouth. Active Naproxen Sodium (ALEVE PO) Take by mouth. Active Turmeric (QC TUMERIC COMPLEX PO) Take by mouth. Active Cyanocobalamin (VITAMIN B 12 PO) Take by mouth. Active sodium sulfate-potassiu m sulfate-magnesiu m sulfate (Suprep Bowel Prep Kit) 17.5-3.13-1.6 GM/177ML Solution 1st bottle 10-12 hours before procedure. 2nd bottle 2 hours before procedure. 2 Bottle 12/23/2019 Active Active Problems No known active problems Immunizations Immunization Administration Dates Next Due Influenza Vaccine, MDCK,quadrivalent, pres free 04/21/2017 Influenza Vaccine, Quadrivalent, PF 02/27/2018 Influenza, Seasonal, Injectable, Undefined 01/30 Zoster Vaccine, live 01/30/2016 Family History Medical History Relation Name Comments Cancer Paternal Grandmother Heart Attack Sister Relation Name Status Comments Paternal Grandmother Sister Social History Tobacco Use Types Packs/Day Years Used Date Smoking Tobacco: Never Smokeless Tobacco: Never Tobacco Cessation:Counseling Given: No Alcohol Use Standard Drinks/Week Comments Not Currently 0 (1 standard drink = 0.6 oz pur e alcohol) PHQ-2 Answer Date Recorded Total Score - Questions 1-9 0 12/11 Comments No Sex and Gender Information Value Date Recorded Sex Assigned at Not on file Legal Sex Female 12:24 AM CDT Gender Identity Not on file Sexual Orientation Not on file Last Filed Vital Signs Vital Sign Reading Time Taken Comments Blood Pressure 110/78 12/21/2019 2:35 PM CDT Pulse 79 12/21/2019 2:35 PM CDT Temperature 36.1 C (96.9 F) 12/21/2019 2:35 PM CDT Respiratory Rate 16 12/21/2019 2:35 PM CDT Oxygen Saturation 98% 12/21/2019 2:35 PM CDT Inhaled Oxygen Concentration - - Weight 76.2 kg (168 lb) 12/21/2019 2:35 PM CDT Height 157.5 cm (5' 2) 12/21/2019 2:35 PM CDT Body Mass Index 30.73 12/21/2019 2:35 PM CDT Plan of Treatment Health Maintenance Due Date Last Done Comments DEXA Bone Density 1955 Hepatitis C Virus (HCV) Screening 1955 TdaP Immunization 1955 Cologuard 2004 Immunochemical Fecal Occult Blood 2004 Mammogram 2004 Pneumococcal Immunization (5 0+ years) (1 of 1 - PCV) 2004 Zoster Immunization (2 of 3) 03/26/2016 01/30/2016 Influenza Immunization (#1) 01/12/202402/10, 04/21/2017, 01/31/2016 SARS-COV-2 Immunization ( - 2023- season) 2024 Colonoscopy 01/06/2027 01/07/2020 Colorectal Cancer Screening 01/06/2027 Respiratory Syncytial Virus (RSV) Immunization (Adult) (1 - 1-dose 75+ series) 2029 01/07/2020 Hepatitis B Immunization Aged Out No longer eligible based on patient's age to complete this topic Meningococcal Immunization (ACWY) Aged Out No longer eligible b ased on patient's age to complete this topic Rotavirus Immunization Aged Out No lo nger eligible based on patient's age to complete this topic Procedures Procedure Name Priority Date/Time Associated Diagnosis Comments COLONOSCOPY Routine 01/07/2020 from Last 3 Months or Most Recently Relevant to Health Maintenance Results * COLONOSCOPY (01/07/2020) Raudel Crooks DO PROCEDURE/MINOR SURGICAL ORDERA BLES Final Result from Last 3 Months or Most Recently Relevant to Health Maintenance Insurance MEDICARE [facility] on file Care Teams Skin Toggler Relationship Specialty Start Date End Date Orlando Jolly DO [address] [place] [address] PCP - General Internal Medicine 12/09/19
[2024-10-05 17:03] VITALS: BP 134/82; PULSE 70; RESP 16; TEMP 36.6; O2SAT 96
--- NOTE | 2024-10-05 17:07 | ED.UPPEXIN ---
HPI - Extremity Injury (Upper) General Chief Complaint: Extremity Injury, Upper Stated Complaint: left elbow pain Time Seen by Provider: 10/05/24 17:04 Source: patient Mode of arrival: ambulatory Limitations: no limitations History of Present Illness HPI narrative: PATIENT IS A 69-YEAR-OLD FEMALE WITH SIGNIFICANT PAST MEDICAL HISTORY THAT PRESENTS TODAY FOR HELP WITH PAIN. PATIENT'S PAIN AND LEFT ELBOW. SHE STATES THIS PAIN STARTED YESTERDAY AND HAS CONTINUED TO GET WORSE TODAY HAS VERY PAINFUL TO MOVE HER LEFT ELBOW AND ANY DIRECTION. IT HURTS ESPECIALLY WHEN SHE FLEXES THE ELBOW. SHE HAS NEVER HAD THIS BEFORE BUT HIS HISTORY ALSO DOES HAVE RIGHT SHOULDER PAIN WELL AND THIS FEELS SIMILAR TO THAT TYPE PAIN. MD complaint: injury to: left and elbow Onset (ago): hour(s) Other Extremity Injury: Left: elbow Handedness: right Place: home Severity: moderate Severity scale (1-10): 6 Relieving factors: cold therapy and immobilization Exacerbating factors: movement of extremity Context: injury Associated symptoms: denies other symptoms Related Data Home Medications ?Medication ?Instructions ?Recorded ?Confirmed ?Last Taken ?Type loratadine 10 mg tablet (Claritin) 10 mg PO DAILY 09/04/19 05/26/24 01/06/20 History multivitamin (One-A-Day Essential 1 tablet PO DAILY 04/26/22 05/26/24 Unknown History tablet) magnesium glycinate mg PO 05/28/23 05/26/24 Unknown History cyanocobalamin (vitamin B-12) 5,000 mcg PO .QOD 01/30/24 05/26/24 Unknown History 5,000 mcg capsule Allergies Allergy/AdvReac Type Severity Reaction Status Date / Time diclofenac Allergy Intermediate did not Verified 10/05/24 17:08 like how it made her feel latex Allergy Mild Rash Verified 10/05/24 17:08 Review of Systems Review of Systems: All systems reviewed & are unremarkable except as noted in HPI and below Constitutional: Constitutional: Reports as per HPI Eyes: Eyes: Reports no additional eye complaints ENT: Reports system reviewed and no additional complaints, except as documented Cardiovascular: Cardiovascular: Reports no additional cardiovascular complaints Respiratory: Respiratory: Reports no additional respiratory complaints Gastrointestinal: Gastrointestinal: Reports no additional gastrointestinal complaints Genitourinary: Genitourinary: Reports no additional female genitourinary complaints Musculoskeletal: Musculoskeletal: Reports as per HPI and Reports arthralgias ( LEFT ELBOW) Integumentary/Breasts: Skin/Breast: Reports system reviewed and no additional complaints, except as docu Neurologic: Reports system reviewed and no additional complaints, except as documented Psychiatric: Psychiatric: Reports no additional psychiatric complaints Endocrine: Endocrine: Reports no additional endocrine complaints Hematologic/Lymphatic: Hematologic/Lymphatic: Reports no additional hematologic/lymphatic complaints Allergic/Immunologic: Allergic/Immunologic: Reports no additional allergic/immunologic complaints [facility] Past Medical History Medical History Screening for breast cancer Adenomatous colon polyp HLD (hyperlipidemia) Essential (primary) hypertension Surgical History Surgical History H/O: knee surgery H/O colonoscopy Family History Family History Mother Patient's mother is in good health Father Patient's father is Acute myocardial infarction Social History Social History Smoking status: Never smoker Second hand tobacco smoke exposure: No Alcohol intake: never Substance use: never Do You Feel Safe in your Home?: Yes Lack of Transportation: No Lack of Food: Never True Current Housing: I Have Housing Concerned About Future Housing: No Difficulty Paying Gas/Electric Bills: No Difficulty Paying for Meds: No Currently Unemployed: No Education: High School Diploma/GED Difficulty w/ Childcare or Family Care: No Living arrangements: with family Gender identity (if verbalized by the patient): Female Sexual Orientation (if Verbalized by the Patient): Straight or Heterosexual Exam Const: General: healthy appearing Nutritional Appearance: well nourished Orientation/consciousness: patient oriented x3 Limitations: no limitations HENMT: Head: normal to inspection Ears: external ears normal Face/Nose/Sinus: Normal external nose present Face and sinus: normal facial exam Mouth: Yes Normal oral and palatal mucosa present Teeth and gingiva: dentition normal Throat: posterior oropharynx normal Eyes: Conjunctivae: conjunctivae normal Pupils: Equal, round and reactive pupils present EOM: EOMs intact bilaterally Direct Ophthalmoscopy: no photophobia Neck: Neck: normal visual inspection Chest: Chest palpation & inspection: normal inspection of the chest Resp: Effort & Inspection: normal respiratory effort Auscultation: clear to auscultation bilaterally Cardio: Rate: regular rate Rhythm: regular rhythm GI: GI Palp: Yes Soft to palpation Back/Spine/Pelvis: Back: no CVA tenderness Skin: General skin exam: normal color Rashes: no rashes Wounds: no wounds Neuro: General: patient oriented x3 Cranial nerves: Yes Nystagmus not present Speech: normal speech Gait exam (Neuro): Normal gait present Extrem: General: normal to inspection Psych: Mental Status: mental status grossly normal Affect: normal affect Attitude: cooperative Course Vital Signs Vital signs: Vital Signs Temperature 98 F 10/05/24 17:03 Pulse Rate 70 10/05/24 17:03 Respiratory Rate 16 10/05/24 17:03 Blood Pressure 134/82 10/05/24 17:03 Pulse Oximetry 96 10/05/24 17:03 Oxygen Delivery Room Air 10/05/24 17:03 Temperature 98 F 10/05/24 17:03 Pulse Rate 70 10/05/24 17:03 Respiratory Rate 16 10/05/24 17:03 Blood Pressure 134/82 10/05/24 17:03 Pulse Oximetry 96 10/05/24 17:03 Oxygen Delivery Room Air 10/05/24 17:03 Procedures Joint Aspiration/Injection Joint Asp./Inject. 1: Joint Aspiration Date: 10/05/24 Joint Aspiration Time: 17:25 Time Out Performed: Yes Side of body: left Joint Aspirated: elbow Ultrasound Guidance: No Skin Prep: Povidone-Iodine1% Local Anesthetic: lidocaine 1% Amount of anesthesia used (mL): 1.5 Needle Size Used: 22G Medication Injected, if any: other ( DEXAMETHASONE) Amount of medication injected (mL): 1 Patient Tolerated Procedure: well Complications: none MDM - Extremity Injury (Upper) MDM Narrative Medical decision making narrative: PATIENT CLEARLY HAS MEDIAL EPICONDYLITIS ON THE LEFT SIDE. I DISCUSSED WITH HER ADMINISTERING A INTRA-ARTICULAR INJECTION TO THE LEFT MEDIAL EPICONDYLE. SHE IS AGREEABLE TO THIS AND WANTS THIS DONE. A JOINT INJECTION WAS SUCCESSFUL AND SHE HAD NO ISSUES WITH AN AURA HE IS FEELING BETTER FROM THE LIDOCAINE HAS TOLD HER SHE SHOULD GET A GOOD MONTH OR MORE OF THE RELIEF FROM THIS INJECTION. ALSO DISCUSSED WITH HER THE EJECTION WORKS WELL THIS COMES BACK SHE CAN RETURN TO [facility] AND [facility] CAN DO THIS EVERY 3 MONTHS AND ASSURANCE WILL PAY FOR. Differential Diagnosis Differential diagnosis: Likely other ( MEDIAL EPICONDYLITIS) Medical Records Attestation: I reviewed the patient's medical records. Discharge Plan Discharge Clinical Impression: Epicondylitis elbow, medial Patient Disposition: Home Condition: Stable Instructions: Mallorie's Elbow (ED) Patient Language: Kenyan Prescriptions: No Action loratadine [Claritin] 10 mg tablet 10 mg PO DAILY multivitamin [One-A-Day Essential] Tablet 1 tablet PO DAILY magnesium glycinate 100 mg magnesium capsule PO cyanocobalamin (vitamin B-12) 5,000 mcg capsule 5,000 mcg PO .QOD clotrimazole 1 % cream 1 applic topical Q12H 28 Days Qty: 30 5RF potassium citrate 10 mEq (1,080 mg) tablet extended release 10 meq PO BID Qty: 180 3RF Rx Instructions: please take with food betamethasone dipropionate 0.05 % cream 1 applic topical BID PRN (Reason: itching) Qty: 15 0RF lisinopril 10 mg tablet See Rx Instructions .ROUTE .COMPLEX Qty: 100 1RF Dose Instruction: TAKE 1 TABLET BY MOUTH DAILY Rx Instructions: TAKE 1 TABLET BY MOUTH DAILY simvastatin 40 mg tablet See Rx Instructions .ROUTE .COMPLEX Qty: 100 2RF Dose Instruction: TAKE 1 TABLET BY MOUTH DAILY Rx Instructions: TAKE 1 TABLET BY MOUTH DAILY lansoprazole 30 mg capsule,delayed release(DR/EC) See Rx Instructions .ROUTE .COMPLEX Qty: 100 1RF Dose Instruction: TAKE 1 CAPSULE BY MOUTH DAILY Rx Instructions: TAKE 1 CAPSULE BY MOUTH DAILY Follow-up/Referrals: Basia Randolph DO [Primary Care Provider] - Time of Disposition: 17:27
[2024-10-05 17:38] VITALS: BP 134/82; PULSE 70; RESP 16; TEMP 36.6; O2SAT 96
== END 2024-10-05 17:38 | disposition home or self-care (01) ==
PROVIDERS: Emergency Provider Family Medicine; PCP Family Medicine
DX: M77.02 Medial epicondylitis, left elbow (principal); I10 Essential (primary) hypertension; E78.5 Hyperlipidemia, unspecified
CPT/HCPCS: 20605; 96372; 99283

== ENCOUNTER 2024-11-02 10:54 | Outpatient (CLI) | payer MEDICARE, SELFPAY ==
--- NOTE | ~2024-11-02 | DEXA_ITS ---
Bone Density Report Name: MARIN JAEGER Age: 69 Sex: Female Ethnicity: White Date of : 1955 Indication: postmenopausal; screening for osteoporosis; height loss; Referring Provider: Jodi Morejon Study: Bone densitometry was performed. Exam Date: November 02, 2024 Accession number: [id number] Bone Density: Region BMD T-score Z-score Classification AP Spine(L1-L4) 1.012 -0.3 1.8 Normal Femoral Neck (Left) 0.802 -0.4 1.4 Normal Total Hip (Left) 1.129 1.5 3.0 Normal Femoral Neck (Right) 0.829 -0.2 1.6 Normal Total Hip (Right) 1.118 1.4 3.0 Normal Total Hip Mean 1.123 1.5 3.0 Normal World Health Organization criteria for BMD impression classify patients as: Normal (T-score at or above -1.0), Osteopenia (T-score between -1.0 and -2.5), or Osteoporosis (T-score at or below -2.5). 10-year Fracture Risk: FRAX not reported because: All T-scores for Spine Total, Hip Total, Femoral Neck at or above -1.0 Clinical Information Provided by Patient: Has used the following medications: Vitamin D, Calcium Patient maximum height was 63 Menopause Age: 44 Onset of menses at age 10 Number of children 3 Impression: The patient has normal bone mass. Discussion: BONE DENSITY IS ABOVE THE MINIMUM DESIRABLE LEVEL AT ALL SKELETAL SITES TESTED. This patient?s bone mineral density is above the minimum desirable level (T-score -1.0 or better) at all sites measured. The patient should follow a healthful lifestyle (good nutrition with adequate calcium and vitamin D, and appropriate weight-bearing exercise). Follow-Up: Consider repeating this study in 5 years or sooner if there is some new clinical indication. Reported by: VJ on 11/02/2024 11:18:00 AM. Reviewed, dictated and finalized at location A.
== END 2024-11-02 10:55 | disposition home or self-care (01) ==
LOC: MICIMG 10:55
PROVIDERS: PCP Family Medicine; Visit Provider Nurse Practitioner
DX: M85.88 Other specified disorders of bone density and structure, other site (principal)
CPT/HCPCS: 77080

== ENCOUNTER 2025-01-21 11:30 | Outpatient (CLI) | payer MEDICARE, SELFPAY ==
--- NOTE | ~2025-01-21 | XR_ITS ---
EXAMINATION: XR shoulder LT min 2V, 01/21/2025 11:40 CDT HISTORY: Pain in left shoulder x 5 months, fall COMPARISON: No comparisons available. Findings: No acute fracture or malalignment. Moderate degenerative changes Soft tissues unremarkable. Impression: No acute fracture or malalignment. Reviewed, dictated and finalized at location A. Impression: No acute fracture or malalignment.
== END 2025-01-21 11:31 | disposition home or self-care (01) ==
LOC: GOSHIMG 11:31
PROVIDERS: PCP Family Medicine; Visit Provider Family Medicine
DX: M25.512 Pain in left shoulder (principal)
CPT/HCPCS: 73030